=== PATIENT | female | born 1995 | race Hispanic/Latino ===

== ENCOUNTER 2021-04-30 11:20 | Outpatient (CLI) | payer OTHER ==
[~2021-04-30] VITALS: Ht 160 cm; Wt 71.8 kg
[2021-04-30 11:48] VITALS: BP 92/62
[2021-04-30] MEDS ORDERED: PRENTAB9 PO (11:55)
[2021-04-30] MEDS ORDERED: IRON1TAB2 PO (11:55)
[2021-04-30] MEDS ORDERED: PURE500C5 PO (11:55)
[2021-04-30 13:01] VITALS: BP 98/56
== END 2021-04-30 13:15 | disposition home or self-care (01) ==
LOC: M LDO 11:20
PROVIDERS: ATTEND Registered Nurse
DX: O9A.213 Injury, poisoning and certain other consequences of external causes complicating pregnancy, third trimester (principal); S30.0XXA Contusion of lower back and pelvis, initial encounter; W10.8XXA Fall (on) (from) other stairs and steps, initial encounter; Y92.9 Unspecified place or not applicable; Z3A.29 29 weeks gestation of pregnancy
CPT/HCPCS: 59025; 76815; G0378; G0463

== ENCOUNTER 2021-06-24 16:51 | Inpatient (IN) | payer OTHER ==
[~2021-06-24] VITALS: Ht 160 cm; Wt 76.0 kg
[2021-06-24] MEDS: LR 1,000 ML IV SCH
[~2021-06-24 16:51] MED LIST: IRON1TAB2 PO; PRENTAB9 PO; PURE500C5 PO
[2021-06-24] MEDS ORDERED: URSO300C3 PO (17:22)
[2021-06-24] MEDS ORDERED: HOME MED LIST COMPLETE! XX SCH (17:25)
[2021-06-24 18:02] LABS: HEMATOCRIT 31.8 % (36.0-47.0); HEMOGLOBIN 11.3 g/dl (12.0-15.5); MEAN CORPUSCULAR HEMOGLOBIN 31.7 pg (27.0-33.0); MEAN CORPUSCULAR HGB CONC 35.5 g/dl (32.0-36.5); MEAN CORPUSCULAR VOLUME 89.3 fl (80.0-96.0); PLATELET COUNT, AUTOMATED 349 10^3/uL (150-450); RED BLOOD COUNT 3.56 10^6/uL (4.00-5.40); WHITE BLOOD COUNT 11.3 10^3/uL (4.0-10.0)
[2021-06-24 18:26] VITALS: BP 113/62
[2021-06-24] MEDS ORDERED: LACTATED RINGER'S 1000 ML IV STA (18:48)
[2021-06-24] MEDS ORDERED: miSOPROStol 50MCG 1/2 TABLET PO ONE (18:50)
[2021-06-24] MEDS ORDERED: TRANEXAMIC ACID INJection 1,000 MG in NS 100 ML IV PRN (18:50)
[2021-06-24] MEDS ORDERED: LIDOCAINE 1% MDV 20ML VIAL INFIL PRN (18:50)
[2021-06-24] MEDS ORDERED: LR 1,000 ML IV SCH (18:50)
[2021-06-24] MEDS ORDERED: CARBOPROST TROMETHAMINE 250 MCG/ML AMP IM PRN (18:50)
[2021-06-24] MEDS ORDERED: OXYTOCIN DRIP 30 UNITS in IV 1 EA IV SCH (18:50)
[2021-06-24] MEDS ORDERED: OXYTOCIN DRIP 30 UNITS in IV 1 EA IV PRN (18:50)
[2021-06-24] MEDS ORDERED: METHYLERGONOVINE MALEATE 0.2 MG/ML VIAL (J2210) IM PRN (18:50)
[2021-06-24] MEDS ORDERED: OXYTOCIN INJ 10 UNITS/ML VIAL (J2590) IV PRN (18:50)
[2021-06-24 19:13] LABS: ALT/SGPT 119 U/L (12-78); BILIRUBIN,TOTAL 0.8 MG/DL (0.2-1.0); CREATININE FOR GFR 0.72 MG/DL (0.55-1.30); GLOMERULAR FILTRATION RATE > 60.0 (>60); LDH LACTATE DEHYDROGENASE 216 U/L (84-246); URIC ACID 4.6 MG/DL (2.6-6.0)
[2021-06-24] MEDS ORDERED: BUTORPHANOL 2 MG/ML INJ (J0595) IV ONE (19:15)
[2021-06-24] MEDS ORDERED: PROMETHAZINE 25MG/ML 1ML VIAL IV ONE (19:15)
[2021-06-24 19:26] VITALS: BP 117/59
[2021-06-24 22:13] VITALS: BP 101/57
[2021-06-25] VITALS (28 sets, daily range): BP systolic 84–128; BP diastolic 41–71
[2021-06-25] MEDS ORDERED: miSOPROStol 25MCG 1/4 TABLET PO ONE (02:00)
[2021-06-25] MEDS ORDERED: PROMETHAZINE 25MG/ML 1ML VIAL IV ONE (05:00)
[2021-06-25] MEDS ORDERED: BUTORPHANOL 2 MG/ML INJ (J0595) IV ONE (05:00)
[2021-06-25] MEDS ORDERED: OXYTOCIN DRIP 30 UNITS in IV 1 EA IV SCH (10:00)
[2021-06-25] MEDS ORDERED: FENTANYL 2MCG/ML ROPIVACAINE 0.2% IN 0.9% NACL 100ML IVBAG As Ordered ONE (20:58)
[2021-06-26] VITALS (49 sets, daily range): BP systolic 109–150; BP diastolic 56–83
[2021-06-26] MEDS ORDERED: LACTATED RINGER'S 1000 ML IV PRN (03:55)
[2021-06-26] MEDS ORDERED: ONDANSETRON 4MG/2ML VIAL IV PRN (03:55)
[2021-06-26] MEDS ORDERED: diphenhydrAMINE 50MG/ML VIAL (J1200) IV PRN (03:55)
[2021-06-26] MEDS ORDERED: NALOXONE INJ 0.4MG/1ML VIAL (J2310 PER 1MG) IV PRN (03:55)
[2021-06-26] MEDS ORDERED: ePHEDrine SULFATE 25 MG/5 ML(5MG/ML) SYRINGE IV PRN (03:55)
[2021-06-26] MEDS ORDERED: REFRIGERATOR IV KEYS XX PRN (03:55)
[2021-06-26] MEDS ORDERED: EPIDURAL COMMENT XX SCH (03:55)
[2021-06-26] MEDS ORDERED: EPIDURAL/PCA KEYS XX PRN (03:55)
[2021-06-26] MEDS: FENTANYL/ROPIVACAINE/NACL BAG 100 ML EPIDURAL SCH ×2 (04:50→09:27)
[2021-06-26 09:00] LABS: HEMATOCRIT 33.5 % (36.0-47.0); HEMOGLOBIN 11.5 g/dl (12.0-15.5); MEAN CORPUSCULAR HGB CONC 34.3 g/dl (32.0-36.5); MEAN CORPUSCULAR VOLUME 90.3 fl (80.0-96.0); PLATELET COUNT, AUTOMATED 294 10^3/uL (150-450); RED BLOOD COUNT 3.71 10^6/uL (4.00-5.40); WHITE BLOOD COUNT 14.6 10^3/uL (4.0-10.0)
[2021-06-26] MEDS: LR 1,000 ML IV SCH (09:04)
[2021-06-26 10:50] LABS: CORD GAS ABE A -4.8; CORD GAS ABE V -3.8; CORD GAS HCO3 A 24.2 MEQ/L; CORD GAS HCO3 V 22.2 MEQ/L; CORD GAS O2 SAT A 26.6 %; CORD GAS O2 SAT V 61.1 %; CORD GAS PCO2 A 60.8 mmHg; CORD GAS PCO2 V 43.5 mmHg; CORD GAS PH A 7.217 UNITS; CORD GAS PH V 7.325 UNITS; CORD GAS PO2 A 15.8 mmHg; CORD GAS PO2 V 24.9 mmHg; CORD GAS SBC A 18.9 MEQ/L; CORD GAS SBC V 20.4 MEQ/L; CORD GAS TCO2 V 23.5 MEQ/L
[2021-06-26] MEDS ORDERED: DOCUSATE SODIUM 100MG CAPSULE PO PRN (10:55)
[2021-06-26] MEDS ORDERED: OXYTOCIN DRIP 30 UNITS in IV 1 EA IV ONE (10:55)
[2021-06-26] MEDS ORDERED: ACETAMINOPHEN 500 MG TAB PO PRN (10:55)
[2021-06-26] MEDS ORDERED: MEASLES,MUMPS,RUBELLA VACCINE INJ (MMR-II) (90707) SC SCH (10:55)
[2021-06-26] MEDS ORDERED: OXYTOCIN INJ 10 UNITS/ML VIAL (J2590) IV ONE (10:55)
[2021-06-26] MEDS ORDERED: ACETAMINOPHEN TAB 650MG DOSE (2X325MG) PO PRN (10:55)
[2021-06-26] MEDS ORDERED: OXYTOCIN DRIP 30 UNITS in IV 1 EA IV SCH ×4 (10:55)
[2021-06-26] MEDS ORDERED: DIBUCAINE 1% OINTMENT 30GM TOP PRN (10:55)
[2021-06-26] MEDS ORDERED: METHYLERGONOVINE MALEATE 0.2 MG TAB PO PRN (10:55)
[2021-06-26] MEDS ORDERED: ANUSOL HC CREAM 30GM TOP PRN (10:55)
[2021-06-26] MEDS ORDERED: LR 1,000 ML IV SCH (10:55)
[2021-06-26] MEDS ORDERED: RHOGAM 300 MCG (1500 IU) INJ (J2790) IM SCH (10:55)
[2021-06-26] MEDS ORDERED: MOM 30ML SUSPENSION UDC PO PRN (10:55)
[2021-06-26] MEDS: IBUPROFEN 600MG TAB PO PRN ×2 (12:30→23:12)
[2021-06-27 05:13] VITALS: BP 103/51
[2021-06-27] MEDS: PRENATAL VITAMINS CHEWABLE TABLET PO SCH (08:01)
[2021-06-27] MEDS: IBUPROFEN 600MG TAB PO PRN (17:44)
[2021-06-27 17:57] VITALS: BP 111/64
[2021-06-28 05:47] VITALS: BP 104/65
[2021-06-28] MEDS ORDERED: IBUP-1022 PO (06:57)
[2021-06-28] MEDS ORDERED: COLA100C5 PO (06:57)
[2021-06-28] MEDS ORDERED: PRENCHW PO (06:57)
[2021-06-28] MEDS: PRENATAL VITAMINS CHEWABLE TABLET PO SCH (08:31)
== END 2021-06-28 17:07 | disposition home or self-care (01) | DRG 807 ==
LOC: M LDI 16:51 → M OBS 06-26 13:50
PROVIDERS: ADMIT Obstetrics & Gynecology; ATTEND Obstetrics & Gynecology
PROC: 3E033VJ Introduction of Other Hormone into Peripheral Vein, Percutaneous Approach (ICD-10-PCS; 2021-06-24)
PROC: 10907ZC Drainage of Amniotic Fluid, Therapeutic from Products of Conception, Via Natural or Artificial Opening (ICD-10-PCS; 2021-06-25)
PROC: 10E0XZZ Delivery of Products of Conception, External Approach (ICD-10-PCS; principal; 2021-06-26)
DX: O26.62 Liver and biliary tract disorders in childbirth (principal); Z37.0 Single live birth; Z3A.37 37 weeks gestation of pregnancy

== ENCOUNTER → 2023-05-19 | Outpatient (REF) | payer OTHER ==
[~2023-05-19] MED LIST changes: +ASCO500C3 PO; +COLA100C5 PO; +IBUP-1022 PO; +PRENCHW PO; -PURE500C5 PO; +URSO300C3 PO
== END ==
LOC: M LAB REF 19:00
PROVIDERS: ATTEND Physician Assistant
DX: R11.2 Nausea with vomiting, unspecified (principal)